=== PATIENT | female | born 1990 | race Caucasian/White ===

== ENCOUNTER → 2016-12-12 | Outpatient (CLI) | payer BC ==
[2016-12-12 11:01] LABS: MEAN CORPUSCULAR HEMOGLOBIN 30.3 pg (27.0-33.0); MEAN CORPUSCULAR HGB CONC 33.1 g/dl (32.0-36.5); MEAN CORPUSCULAR VOLUME 91.4 fl (80.0-96.0); RED CELL DISTRIBUTION WIDTH 13.6 % (11.5-14.5); WHITE BLOOD COUNT 11.8 K/mm3 (4.0-10.0)
[2016-12-12 11:13] LABS: ALT/SGPT 16 U/L (12-78); AST/SGOT 14 U/L (15-37); BILIRUBIN,TOTAL 0.2 MG/DL (0.2-1.0); CREATININE FOR GFR 0.63 MG/DL (0.55-1.02); GLOMERULAR FILTRATION RATE > 60.0 (>60)
== END ==
LOC: M LAB 09:55
PROVIDERS: ATTEND Advanced Practice Midwife
DX: R03.0 Elevated blood-pressure reading, without diagnosis of hypertension (principal)

== ENCOUNTER → 2016-12-16 | Outpatient (REF) | payer BC | LOC: M LAB REF 16:22 | PROVIDERS: ATTEND Obstetrics & Gynecology | DX: Z34.83 Encounter for supervision of other normal pregnancy, third trimester (principal) ==

== ENCOUNTER → 2017-01-06 | Outpatient (REF) | payer BC ==
[2017-01-06 18:48] LABS: ALT/SGPT 25 U/L (12-78); AST/SGOT 21 U/L (15-37); BILIRUBIN,TOTAL 0.3 MG/DL (0.2-1.0); CREATININE FOR GFR 0.73 MG/DL (0.55-1.02); GLOMERULAR FILTRATION RATE > 60.0 (>60); URIC ACID 4.3 MG/DL (2.6-6.0)
[2017-01-06 18:49] LABS: MEAN CORPUSCULAR HEMOGLOBIN 30.9 pg (27.0-33.0); MEAN CORPUSCULAR HGB CONC 33.5 g/dl (32.0-36.5); MEAN CORPUSCULAR VOLUME 92.2 fl (80.0-96.0); RED CELL DISTRIBUTION WIDTH 13.6 % (11.5-14.5); WHITE BLOOD COUNT 13.1 K/mm3 (4.0-10.0)
== END ==
LOC: M LAB REF 16:33
PROVIDERS: ATTEND Advanced Practice Midwife
DX: R03.0 Elevated blood-pressure reading, without diagnosis of hypertension (principal)

== ENCOUNTER 2017-01-15 22:46 | Inpatient (IN) | payer BC ==
[2017-01-15 23:05] VITALS: BP 152/90
[2017-01-15 23:41] LABS: WHITE BLOOD COUNT 13.3 K/mm3 (4.0-10.0)
[2017-01-15 23:50] LABS: MEAN CORPUSCULAR HEMOGLOBIN 31.1 pg (27.0-33.0); MEAN CORPUSCULAR HGB CONC 34.2 g/dl (32.0-36.5); MEAN CORPUSCULAR VOLUME 90.9 fl (80.0-96.0); RED CELL DISTRIBUTION WIDTH 13.7 % (11.5-14.5)
[2017-01-15 23:54] VITALS: BP 134/88
[2017-01-15] MEDS ORDERED: LACTATED RINGER'S 1000 ML IV STA (23:57)
[2017-01-16] VITALS (57 sets, daily range): BP systolic 90–154; BP diastolic 35–88
[2017-01-16 00:18] LABS: ALT/SGPT 17 U/L (12-78); AST/SGOT 21 U/L (15-37); BILIRUBIN,TOTAL 0.4 MG/DL (0.2-1.0); CREATININE FOR GFR 0.61 MG/DL (0.55-1.02); GLOMERULAR FILTRATION RATE > 60.0 (>60)
--- NOTE | 2017-01-16 00:31 | HPEPDOC ---
Obstetrical History & Physical General Date of Admission Jan 15, 2017 at 22:46 Primary Care Physician: SABIHA MANRIQUEZ CNM History of Present Illness Patient is a 26-year-old female who is a at 39 weeks 4 days gestation with an TRISTIAN of 01/19/2017 based off of her first trimester ultrasound and consistent with her LMP. She initiated her care at [facility] in her first trimester. Her has been complicated by A1 GDM and gestational hypertension. Patient reports to labor and delivery for induction of labor due to complications of A1 GDM and gestational hypertension. She reports active movement. Denies leaking of fluid or vaginal bleeding. Reports cramping and occasional back pain. Patient denies headache, visual changes, epigastric pain. Chief Complaint: Induction of labor Information Provided By: Patient Age: 26 : 1 Livin Care Care: Good Care Dating Final EDC: Jan 19, 2017 Final EDC by: 1st trimester (US) LMP: April 04, 2016 EGA at Admission: 39.4 Antepartum Course Diagnos(e)s Gestational hypertension and gestational diabetes, diet controlled Height (inches): 61 Pre- weight (lbs.): 208 Admission Weight (lbs.): 216 Change in Weight (lbs.): 8 Past Medical History Past Obstetrical History : Past Obstetrical History: Primgravida Past Medical History Medical History Extrinsic asthma, PCOS, irregular heartbeat Surgical History: [place] teeth Family History Family History Father due to melanoma. Mother diagnosed with depression, bipolar disorder, anxiety, diabetes, PCOS and polycythemia. Social History Social history Patient is . Mother lives with the patient and . 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 She's currently in school finishing her bachelor's degree. She denies being a smoker. Denies drug use or alcohol use. Denies any physical, emotional, or sexual abuse. Marital Status: Family situation: Spouse/partner home Psychosocial History: No pertinent psych hx * Smoker: non-smoker Alcohol: Denies Drugs: denies Abuse Violence Screening Have you been hit/kicked/slapp: No Have you been sexually assault: No Allergies Coded Allergies: Montelukast (Verified Allergy, Unknown, 01/16/17) Physical Examination Physical Examination GENERAL: Alert and oriented times three. BREAST: . ABDOMEN: Gravid and non-tender to touch. FETUS: Is vertex (VTX) by sterile vaginal examination (SVE), fetus is vertex ( VTX) by Rojas. HEART RATE: Regular rate and rhythm. LUNGS: Clear to auscultation (CTA). EXTREMITIES: No edema. No clonus. Deep tendon reflexes (DTRs) + [2]. Laboratory Data 24H LABS Laboratory Tests 2 01/15/17 22:49: Serology Scanned Report Hepatitis B Testing 01/15/17 23:20: CBC/BMP Laboratory Tests 01/15/17 23:20 Red Blood Count 4.44, Mean Corpuscular Volume 90.9, Mean Corpuscular Hemoglobin 31.1, Mean Corpuscular Hemoglobin Concent 34.2, Red Cell Distribution Width 13.7 Urine Culture: No Growth Pertinent Laboratoy Data Blood Type: A+ RBC Antibody Screen: Negative HIV: Negative Hepatitis B: Negative Rapid Plasma Reagin: Immune Rubella: Nonreactive Chlamydia/Gonorrhea: Negative Group B Streptococcus: Negative Quad Screen Test: Declined Glucose Tolerance Test: 131 Diag/Inter Therapy Three-hour glucose tolerance test: Fasting 93, 1 hour 194, 2 hour 166, 3 hour 128. Anatomy Ultrasound Ultrasound Date: Jan 04, 2017 Placenta Location: Fundal Normal Anatomy: Yes Placenta Previa: No Estimated Weight (grams): 3129 Vaginal Examination Dilation: 4 cm Effacement: 80+% Station: Other (0) Cervical Consistency: Soft Cervical Position: Middle Presentation: Cephalic presentation Position: Vertex (occiput) Assessment Heart Rate (FHR): 125 Variability: Moderate Accelerations: Positive Decelerations: None Tocometer Contractions: Yes Frequency: irregular Strength: palpated as mild Multi-drug resistant Organism: No history of MDRO Assessment/Plan Assessment IUP at 39 weeks 4 days gestation, gestational hypertension, A1 GDM, every 1 heart rate tracing Plan Patient admitted to labor and delivery. Saline lock per protocol, labs as ordered, out of bed ad terrell., clear liquids. Reviewed risks/benefits of induction of labor with patient, , patient's mother. All questions addressed. Patient desires induction of labor. Start Pitocin per order. Patient Celesta no she has any signs or symptoms of preeclampsia at this point. Anticipate cervical change and spontaneous vaginal delivery. Plan of care reviewed with Dr. Quezada, who is in agreement with plan of care. SABIHA MANRIQUEZ CNM Jan 16, 2017 00:31
[2017-01-16] MEDS: LR 1,000 ML IV SCH ×2 (00:45→13:12)
[2017-01-16] MEDS ORDERED: FENTANYL 2MCG/ML ROPIVACAINE 0.2% NACL 250 ML CADD As Ordered ONE (09:10)
[2017-01-16] MEDS ORDERED: NALOXONE INJ 0.4 MG/1 ML VIAL (J2310) IV PRN (10:00)
[2017-01-16] MEDS ORDERED: FENTANYL/ROPIVACAINE/NACL CADD 250 ML EPIDURAL SCH (10:00)
[2017-01-16] MEDS ORDERED: EPIDURAL/PCA KEYS XX PRN (10:00)
[2017-01-16] MEDS ORDERED: REFRIGERATOR IV KEYS XX PRN (10:00)
[2017-01-16] MEDS ORDERED: diphenhydrAMINE INJ 50MG/ML VIAL (J1200) IV PRN (10:00)
[2017-01-16] MEDS ORDERED: EPIDURAL COMMENT XX SCH (10:00)
[2017-01-16] MEDS ORDERED: ONDANSETRON 4MG/2ML VIAL (J2405) IV PRN (10:00)
[2017-01-16] MEDS ORDERED: LACTATED RINGER'S 1000 ML IV PRN (10:00)
--- NOTE | 2017-01-16 13:20 | IPNPDOC ---
Obstetrical Progress Note Date of Service The patient was seen on 01/16/17 at 04:00. Progress Note SUBJECTIVE: Patient reports she is comfortable. Denies feeling contractions. Reports some back pain. OBJECTIVE: FHR: 120, moderate variability, positive accelerations, no decelerations. Contractions are every 3-7 minutes. Vital signs: Pressure 112/60 , heart rate 67. Pitocin is at 10 mU/m. ASSESSMENT: IUP at 39 weeks 4 days gestation, gestational hypertension, gestational diabetes-diet controlled, not in active labor, category 1 heart rate tracing. PLAN: Continue with Pitocin augmentation. Anticipate cervical change and vaginal delivery. Patient may receive epidural at any point she desires. SABIHA MANRIQUEZ CNM Jan 16, 2017 13:20
--- NOTE | 2017-01-16 13:24 | IPNPDOC ---
Obstetrical Progress Note Date of Service The patient was seen on 01/16/17 at 11:00. Progress Note SUBJECTIVE: Patient is comfortable with epidural. Has no complaints. OBJECTIVE: heart rate 125, moderate variability, no decelerations, no accelerations. Contractions are every 2-5 minutes. Pitocin is at 12 mU/m. SVE: 7 /100/-1, scant bloody show. Artificial rupture of membranes to a moderate amount of clear fluid. Vital signs: Blood pressure 116/59, heart rate 94, respirations 18, temperature 96.7F. ASSESSMENT: IUP at 39 weeks 4 days gestation, active labor, category 1 heart rate tracing, gestational diabetes-diet controlled, gestational hypertension. PLAN: Continue with Pitocin induction. Anticipate cervical change and spontaneous vaginal delivery. SABIHA MANRIQUEZ CNM Jan 16, 2017 13:24
[2017-01-16] MEDS ORDERED: OXYTOCIN DRIP 30 UNITS in APPROPRIATE DILUENT 1 EA IV SCH ×3 (16:22)
--- NOTE | 2017-01-16 16:22 | DNPDOC ---
Delivery Note Delivery Note Beulah is a 26-year-old female now G 1 P 1001 at 39.4 weeks' gestation who presented to labor and delivery for induction of labor due to gestational hypertension and gestational diabetes that has been diet controlled she received an epidural for pain management. Pitocin was used for induction. She progressed to fully dilated at 1352. Patient did not start pushing until 1415. Patient pushed to a spontaneous vaginal delivery at 1450 to a living male in the OA position with restitution to L OT. No nuchal cord noted. A 10 second shoulder dystocia occurred and patient positioned in [facility] which resolved the dystocia allowing the shoulders to deliver with ease and the corpus immediately followed. Baby placed on maternal abdomen, skin to skin, active and crying after stimulation. Cord clamped 2 and cut by father of the baby after pulsation ceased. Spontaneous delivery of intact placenta with a three-vessel cord by Wallace mechanism at 1510. Uterine hemostasis achieved by rapid infusion of IV Pitocin and uterine fundal massage. Perineum and vagina inspected and found to have a second-degree perineal laceration that was repaired with a 3. 0 Vic[address] Rapide [address]1. EBL 350. 's 8/9. Weight pounds 5 ounces, 3324 g. Mallory's name's Landry and he is breast-feeding without difficulty. Mom and baby stable. SABIHA MANRIQUEZ CNM Jan 16, 2017 16:22
[2017-01-16] MEDS ORDERED: MEASLES,MUMPS,RUBELLA VACCINE INJ (MMR-II) (90707) SC SCH (16:30)
[2017-01-16] MEDS ORDERED: DOCUSATE SODIUM 100 MG CAP PO PRN (16:30)
[2017-01-16] MEDS ORDERED: RHOGAM 300 MCG (1500 IU) INJ (J2790) IM SCH (16:30)
[2017-01-16] MEDS ORDERED: ANUSOL HC CREAM 30GM TOP PRN (16:30)
[2017-01-16] MEDS ORDERED: METHYLERGONOVINE MALEATE 0.2 MG TAB PO PRN (16:30)
[2017-01-16] MEDS ORDERED: DIBUCAINE 1% OINTMENT 30GM TOP PRN (16:30)
[2017-01-16] MEDS: IBUPROFEN 800 MG TAB PO PRN (18:03)
[2017-01-16] MEDS: ACETAMINOPHEN 500 MG TAB PO PRN (21:19)
[2017-01-17] MEDS: IBUPROFEN 800 MG TAB PO PRN ×3 (05:18→23:50)
[2017-01-17 05:53] VITALS: BP 116/59
--- NOTE | 2017-01-17 08:37 | IPNPDOC ---
Obstetrical Progress Note Date of Service The patient was seen on 01/17/17 at 08:34. Progress Note SUBJECTIVE: Patient reports she is comfortable. Voiding without difficulty. well per patient. OBJECTIVE: PHYSICAL EXAMINATION: VITAL SIGNS: Please see below. BREAST EXAMINATION: soft, nontender. FUNDUS: firm 1 below uterus, nontender. PERINEUM: Lochia bright red, small amount. Slight edema. EXTREMITIES: Bilateral lower legs and feet with 1+ pitting edema. CURRENT LABS: Please see below. ASSESSMENT: Day 1 . PLAN:Continue supportive nursing care and care. VS, I&O, 24H, Fishbone Vital Signs/I&O Vital Signs Date Time Temp Pulse Resp B/P Pulse Ox O2 Delivery O2 Flow Rate FiO2 01/17/17 05:53 96.4 76 17 116/59 I&O- Last 24 Hours up to 6 AM 01/17/17 06:00 Intake Total 3000 ml Output Total 750 ml Balance 2250 ml SABIHA MANRIQUEZ CNM Jan 17, 2017 08:37
[2017-01-17] MEDS ORDERED: ADACEL/BOOSTRIX VACCINE (DIPHTH/PERTUSS/ACELL/TETANUS)0.5ML SYR (90715) IM SCH (09:00)
[2017-01-17] MEDS: PRENATAL VITAMIN TAB PO SCH (09:29)
[2017-01-17] MEDS: ACETAMINOPHEN 500 MG TAB PO PRN (11:37)
[2017-01-17 18:00] VITALS: BP 129/67
[2017-01-18 06:27] VITALS: BP 139/84
[2017-01-18] MEDS: PRENATAL VITAMIN TAB PO SCH (09:02)
[2017-01-18] MEDS: IBUPROFEN 800 MG TAB PO PRN (09:02)
[2017-01-18] MEDS ORDERED: PRENTAB9 PO (11:23)
[2017-01-18] MEDS ORDERED: IBUP-1114 PO (11:23)
[2017-01-18] MEDS ORDERED: ACET50TA PO (11:23)
[2017-01-18] MEDS ORDERED: ADACEL/BOOSTRIX VACCINE (DIPHTH/PERTUSS/ACELL/TETANUS)0.5ML SYR (90715) IM ONE (12:00)
[2017-01-19] MEDS ORDERED: ADACEL/BOOSTRIX VACCINE (DIPHTH/PERTUSS/ACELL/TETANUS)0.5ML SYR (90715) IM ONE (09:00)
== END 2017-01-18 15:30 | disposition home or self-care (01) | DRG 560 ==
LOC: M LDI 22:46 → M OBS 01-16 18:16
PROVIDERS: ADMIT Obstetrics & Gynecology; ATTEND Obstetrics & Gynecology
PROC: 10E0XZZ Delivery of Products of Conception, External Approach (ICD-10-PCS; principal; 2017-01-16)
PROC: 0KQM0ZZ Repair Perineum Muscle, Open Approach (ICD-10-PCS; 2017-01-16)
PROC: 3E033VJ Introduction of Other Hormone into Peripheral Vein, Percutaneous Approach (ICD-10-PCS; 2017-01-16)
DX: O24.410 Gestational diabetes mellitus in pregnancy, diet controlled (principal); O13.4 Gestational [pregnancy-induced] hypertension without significant proteinuria, complicating childbirth; Z37.0 Single live birth; Z3A.39 39 weeks gestation of pregnancy; O70.1 Second degree perineal laceration during delivery; O66.0 Obstructed labor due to shoulder dystocia

== ENCOUNTER → 2020-02-03 | Outpatient (CLI) | payer SELFPAY ==
[~2020-02-03] MED LIST: IBUP-1114 PO; MAPA500T2 PO; PRENTAB9 PO
--- NOTE | 2020-02-03 13:35 | REP ---
Clinical: Pain with recent trauma. Technique: AP, lateral, bilateral oblique views of the right ankle. Findings: Moderate lateral swelling. No acute fracture or dislocation. Ankle mortise intact. No subcutaneous emphysema or radiodense foreign body. Maurisio: Moderate lateral swelling. No acute fracture or dislocation. Electronically Signed by George Cordero MD 02/03/2020 01:26 P
== END ==
LOC: M WUC 13:08
PROVIDERS: ATTEND Physician Assistant
DX: M25.571 Pain in right ankle and joints of right foot (principal)

== ENCOUNTER → 2020-10-22 | Outpatient (CLI) | payer SELFPAY | LOC: M LABSMTC 10:22 | PROVIDERS: ATTEND Pediatrics | DX: Z20.828 Contact with and (suspected) exposure to other viral communicable diseases (principal) ==

== ENCOUNTER → 2021-04-07 | Outpatient (CLI) | payer BC ==
[2021-04-07 18:20] LABS: HEPATITIS A ANTIBODY IGM NEGATIVE (NEGATIVE); HEPATITIS B CORE ANTIBODY IGM NEGATIVE (NEGATIVE); HEPATITIS B SURFACE ANTIGEN NEGATIVE (NEGATIVE); HIV 1&2 SCREEN CENTAUR NEGATIVE (NEGATIVE)
[2021-04-09 05:07] LABS: HSV TYPE I IgG SPECIFIC <0.91 index (0.00-0.90); HSV TYPE II IgG SPECIFIC <0.91 index (0.00-0.90)
== END ==
LOC: M WUC 13:31
PROVIDERS: ATTEND Nurse Practitioner Family
DX: Z20.2 Contact with and (suspected) exposure to infections with a predominantly sexual mode of transmission (principal)

== ENCOUNTER → 2021-11-13 | Outpatient (REF) | LOC: M LABSMTC 13:54 | PROVIDERS: ATTEND Pediatrics | DX: Z20.822 Contact with and (suspected) exposure to COVID-19 (principal) ==

== ENCOUNTER → 2023-09-21 | Outpatient (CLI) | payer OTHER ==
[2023-09-21 11:44] LABS: ALBUMIN 4.2 G/DL (3.2-5.2); ALKALINE PHOSPHATASE 51 U/L (46-116); ALT/SGPT 24 U/L (7.0-40); AST/SGOT 15 U/L (<34); BILIRUBIN,TOTAL 0.6 MG/DL (0.3-1.2); BLOOD UREA NITROGEN 17 MG/DL (9-23); CALCIUM LEVEL 9.6 MG/DL (8.5-10.1); CARBON DIOXIDE LEVEL 27 MMOL/L (20-31); CHLORIDE LEVEL 106 MMOL/L (98-107); CHOLESTEROL LEVEL 246 MG/DL (<200); CHOLESTEROL RISK RATIO 5.66 (<5); CREATININE FOR GFR 0.86 MG/DL (0.55-1.30); FOLLICLE STIMULATING HORMONE 8.8 mIU/ML; GLOMERULAR FILTRATION RATE > 60.0 (>60); GLUCOSE, FASTING 91 MG/DL (60-100); HDL CHOLESTEROL 43.4 MG/DL (>40); LDL CHOLESTEROL 165.2 MG/DL (<100); NON-HDL-C 202.6 MG/DL; POTASSIUM SERUM 4.8 MMOL/L (3.5-5.1); SODIUM LEVEL 141 MMOL/L (136-145); TOTAL PROTEIN 7.2 G/DL (5.7-8.2); TRIGLYCERIDES LEVEL 187 MG/DL (<150)
[2023-09-21 11:45] LABS: LUTEINIZING HORMONE 4.4 mIU/ML; PROLACTIN 7.52 NG/ML
[2023-09-21 11:46] LABS: TESTOSTERONE 36 NG/DL (14-76)
[2023-09-21 11:48] LABS: BASO # 0.1 10^3/uL (0.0-0.2); BASO % 0.6 % (0.0-1.0); EOS # 0.2 10^3/uL (0.0-0.5); EOS % 2.6 % (0.0-3.0); HEMATOCRIT 43.1 % (36.0-47.0); HEMOGLOBIN 13.9 g/dl (12.0-15.5); LYMPH # 2.3 10^3/uL (1.5-5.0); LYMPH % 26.3 % (24.0-44.0); MEAN CORPUSCULAR HEMOGLOBIN 30.3 pg (27.0-33.0); MEAN CORPUSCULAR HGB CONC 32.3 g/dl (32.0-36.5); MEAN CORPUSCULAR VOLUME 93.9 fl (80.0-96.0); MONO # 0.6 10^3/uL (0.0-0.8); MONO % 6.7 % (2.0-8.0); NEUTROPHILS # 5.6 10^3/uL (1.5-8.5); NEUTROPHILS % 63.5 % (36.0-66.0); PLATELET COUNT, AUTOMATED 278 10^3/uL (150-450); RED BLOOD COUNT 4.59 10^6/uL (4.00-5.40); WHITE BLOOD COUNT 8.8 10^3/uL (4.0-10.0)
[2023-09-21 12:09] LABS: HIV 1&2 SCREEN NEGATIVE (NEGATIVE)
[2023-09-21 12:17] LABS: HEPATITIS C VIRUS ABY INDEX 0.04 INDEX (<0.8)
== END ==
LOC: M PLALAB 07:05
PROVIDERS: ATTEND Student in an Organized Health Care Education/Training Program
DX: Z76.89 Persons encountering health services in other specified circumstances (principal); E28.2 Polycystic ovarian syndrome

== ENCOUNTER → 2024-03-13 | Outpatient (REF) | payer OTHER | LOC: M SFHCPLAZ 08:47 | PROVIDERS: ATTEND Student in an Organized Health Care Education/Training Program | DX: E66.01 Morbid (severe) obesity due to excess calories (principal); E28.2 Polycystic ovarian syndrome ==

== ENCOUNTER → 2024-04-25 | Outpatient (CLI) | payer OTHER | LOC: M WHC 09:13 | PROVIDERS: ATTEND Student in an Organized Health Care Education/Training Program | DX: N94.6 Dysmenorrhea, unspecified (principal) ==

== ENCOUNTER → 2024-04-25 | Outpatient (CLI) | payer OTHER ==
[2024-04-25 13:34] LABS: HEMATOCRIT 43.2 % (36.0-47.0)
[2024-04-25 13:36] LABS: BASO # 0.1 10^3/uL (0.0-0.2); BASO % 0.6 % (0.0-1.0); EOS # 0.3 10^3/uL (0.0-0.5); EOS % 3.3 % (0.0-3.0); HEMOGLOBIN 14.1 g/dl (12.0-15.5); LYMPH # 2.7 10^3/uL (1.5-5.0); LYMPH % 29.4 % (24.0-44.0); MEAN CORPUSCULAR HEMOGLOBIN 30.4 pg (27.0-33.0); MEAN CORPUSCULAR HGB CONC 32.8 g/dl (32.0-36.5); MEAN CORPUSCULAR VOLUME 92.7 fl (80.0-96.0); MONO # 0.7 10^3/uL (0.0-0.8); MONO % 7.4 % (2.0-8.0); NEUTROPHILS # 5.4 10^3/uL (1.5-8.5); PLATELET COUNT, AUTOMATED 314 10^3/uL (150-450); RED BLOOD COUNT 4.64 10^6/uL (4.00-5.40); WHITE BLOOD COUNT 9.1 10^3/uL (4.0-10.0)
[2024-04-25 14:03] LABS: FREE T4 1.07 NG/DL (0.89-1.76); THYROID STIMULATING HORMONE 1.677 uIU/ML (0.55-4.78); VITAMIN B12 LEVEL 459 PG/ML (211-911)
[2024-04-25 14:05] LABS: ALBUMIN 3.9 G/DL (3.2-5.2); ALKALINE PHOSPHATASE 56 U/L (46-116); ALT/SGPT 26 U/L (7.0-40); AST/SGOT 13 U/L (<34); BILIRUBIN,TOTAL 0.5 MG/DL (0.3-1.2); BLOOD UREA NITROGEN 12 MG/DL (9-23); CALCIUM LEVEL 9.3 MG/DL (8.5-10.1); CARBON DIOXIDE LEVEL 27 MMOL/L (20-31); CHLORIDE LEVEL 105 MMOL/L (98-107); CHOLESTEROL LEVEL 263 MG/DL (<200); CHOLESTEROL RISK RATIO 5.57 (<5); CREATININE FOR GFR 0.84 MG/DL (0.55-1.30); GLOMERULAR FILTRATION RATE > 60.0 (>60); GLUCOSE, FASTING 77 MG/DL (60-100); HDL CHOLESTEROL 47.2 MG/DL (>40); NON-HDL-C 215.8 MG/DL; POTASSIUM SERUM 4.7 MMOL/L (3.5-5.1); SODIUM LEVEL 139 MMOL/L (136-145); TOTAL PROTEIN 6.8 G/DL (5.7-8.2); TRIGLYCERIDES LEVEL 174 MG/DL (<150)
== END ==
LOC: M PLALAB 10:07
PROVIDERS: ATTEND Student in an Organized Health Care Education/Training Program
DX: E66.01 Morbid (severe) obesity due to excess calories (principal); E28.2 Polycystic ovarian syndrome

== ENCOUNTER → 2024-05-30 | Outpatient (CLI) | payer OTHER ==
[2024-05-30 15:13] LABS: BASO # 0.1 10^3/uL (0.0-0.2); BASO % 0.6 % (0.0-1.0); EOS # 0.2 10^3/uL (0.0-0.5); HEMATOCRIT 43.3 % (36.0-47.0); LYMPH # 2.2 10^3/uL (1.5-5.0); LYMPH % 21.5 % (24.0-44.0); MEAN CORPUSCULAR HEMOGLOBIN 29.8 pg (27.0-33.0); MEAN CORPUSCULAR HGB CONC 32.3 g/dl (32.0-36.5); MEAN CORPUSCULAR VOLUME 92.1 fl (80.0-96.0); MONO # 0.6 10^3/uL (0.0-0.8); MONO % 5.6 % (2.0-8.0); NEUTROPHILS # 7.1 10^3/uL (1.5-8.5); NEUTROPHILS % 69.7 % (36.0-66.0); PLATELET COUNT, AUTOMATED 327 10^3/uL (150-450); WHITE BLOOD COUNT 10.2 10^3/uL (4.0-10.0)
[2024-05-30 15:18] LABS: ALBUMIN 4.1 G/DL (3.2-5.2); ALKALINE PHOSPHATASE 54 U/L (46-116); ALT/SGPT 24 U/L (7.0-40); AST/SGOT 14 U/L (<34); BILIRUBIN,TOTAL 0.7 MG/DL (0.3-1.2); BLOOD UREA NITROGEN 9 MG/DL (9-23); CALCIUM LEVEL 9.8 MG/DL (8.5-10.1); CARBON DIOXIDE LEVEL 27 MMOL/L (20-31); CHLORIDE LEVEL 106 MMOL/L (98-107); CREATININE FOR GFR 0.84 MG/DL (0.55-1.30); GLOMERULAR FILTRATION RATE > 60.0 (>60); GLUCOSE, FASTING 87 MG/DL (60-100); POTASSIUM SERUM 4.7 MMOL/L (3.5-5.1); SODIUM LEVEL 138 MMOL/L (136-145)
== END ==
LOC: M PLALAB 10:56
PROVIDERS: ATTEND Physician Assistant Medical
DX: K29.50 Unspecified chronic gastritis without bleeding (principal)

== ENCOUNTER → 2025-01-31 | Outpatient (CLI) | payer OTHER ==
[2025-01-31 14:04] LABS: BASO # 0.1 10^3/uL (0.0-0.2); BASO % 0.6 % (0.0-1.0); EOS # 0.3 10^3/uL (0.0-0.5); EOS % 2.5 % (0.0-3.0); HEMATOCRIT 42.5 % (36.0-47.0); HEMOGLOBIN 13.4 g/dl (12.0-15.5); LYMPH # 2.5 10^3/uL (1.5-5.0); LYMPH % 25.4 % (24.0-44.0); MEAN CORPUSCULAR HEMOGLOBIN 29.3 pg (27.0-33.0); MEAN CORPUSCULAR HGB CONC 31.5 g/dl (32.0-36.5); MEAN CORPUSCULAR VOLUME 92.8 fl (80.0-96.0); MONO # 0.8 10^3/uL (0.0-0.8); MONO % 8.2 % (2.0-8.0); NEUTROPHILS # 6.2 10^3/uL (1.5-8.5); NEUTROPHILS % 62.8 % (36.0-66.0); PLATELET COUNT, AUTOMATED 318 10^3/uL (150-450); RED BLOOD COUNT 4.58 10^6/uL (4.00-5.40); WHITE BLOOD COUNT 9.9 10^3/uL (4.0-10.0)
[2025-01-31 14:35] LABS: HEMOGLOBIN A1c 4.8 % (4.0-6.0)
[2025-01-31 14:42] LABS: ALKALINE PHOSPHATASE 46 U/L (35-104); ALT/SGPT 26 U/L (7.0-40); AST/SGOT 15 U/L (<34); BILIRUBIN,TOTAL 0.5 MG/DL (0.3-1.2); BLOOD UREA NITROGEN 14 MG/DL (9-23); CALCIUM LEVEL 9.4 MG/DL (8.5-10.1); CARBON DIOXIDE LEVEL 26 MMOL/L (20-31); CHLORIDE LEVEL 104 MMOL/L (98-107); CHOLESTEROL LEVEL 239 MG/DL (<200); CHOLESTEROL RISK RATIO 4.84 (<5); GLOMERULAR FILTRATION RATE > 60.0 (>60); GLUCOSE, FASTING 85 MG/DL (60-100); HDL CHOLESTEROL 49.3 MG/DL (>40); LDL CHOLESTEROL 167.7 MG/DL (<100); NON-HDL-C 189.7 MG/DL; POTASSIUM SERUM 4.6 MMOL/L (3.5-5.1); SODIUM LEVEL 138 MMOL/L (136-145); THYROID STIMULATING HORMONE 1.409 uIU/ML (0.55-4.78); TRIGLYCERIDES LEVEL 110 MG/DL (<150)
[2025-01-31 14:43] LABS: FREE T4 1.19 NG/DL (0.89-1.76)
== END ==
LOC: M PLALAB 09:12
PROVIDERS: ATTEND Student in an Organized Health Care Education/Training Program
DX: F41.9 Anxiety disorder, unspecified (principal); R42 Dizziness and giddiness; Z13.1 Encounter for screening for diabetes mellitus; Z68.41 Body mass index [BMI] 40.0-44.9, adult

== ENCOUNTER → 2025-05-08 | Outpatient (REF) | payer OTHER | LOC: M SFHCWAGY 13:16 | PROVIDERS: ATTEND Student in an Organized Health Care Education/Training Program | DX: Z12.4 Encounter for screening for malignant neoplasm of cervix (principal) ==